=== PATIENT | male | born 1960 | race Caucasian/White ===

== ENCOUNTER 2019-03-09 09:27 | Emergency (ER) | payer MEDICARE, MEDICAID ==
--- NOTE | 2019-03-09 09:48 | Emergency Department Record ---
History of Present Illness - General Chief complaint: Male Urogenital Problem Stated complaint: TROUBLE URINATING Time Seen by Provider: 03/09/19 09:39 Source: Patient Mode of Arrival: Ambulatory Limitations: No limitations - History of Present Illness Initial comments: The patient is here due to a 3 day hx of dysuria. He denies any AP, nausea, vomiting, back pain or fevers. The patient has no hx of UTI's and he is on Coumadin due to chronic DVT's. MD Complaint: Dysuria Onset/Timin -: Days(s) - Related Data Home Medications Medication Instructions Recorded Confirmed Last Taken Cyclobenzaprine HCl [Flexeril] 10 mg PO BID 03/09/19 03/09/19 03/08/19 Gabapentin [Neurontin] 300 mg PO TID 03/09/19 03/09/19 03/09/19 Hydrocodone/Acetaminophen [[place] 1 each PO DAILY 03/09/19 03/09/19 03/08/19 7.5-325 Tablet] Warfarin Sodium [Coumadin] 5 mg PO Q48H 03/09/19 03/09/19 03/07/19 Warfarin Sodium [Coumadin] 7.5 mg PO Q48H 03/09/19 03/09/19 03/08/19 Previous Rx's Medication Instructions Recorded Cephalexin [Keflex] 500 mg PO TID #21 cap 03/09/19 Allergies Allergy/AdvReac Type Severity Reaction Status Date / Time antibiotics Allergy RASH Uncoded 03/09/19 09:42 Travel Screening - Travel/Exposure Within Last 30 Days Have you traveled within the last 30 days?: No - Travel/Exposure Within Last Year Have you traveled outside the [place] in the last year?: No - Additonal Travel Details Have you been exposed to anyone with a communicable illness?: No - Travel Symptoms Symptom Screening: None Review of Systems Constitutional: Denies: Chills, Fever Eyes: Denies: Eye discharge ENT: Denies: Congestion Respiratory: Denies: Cough, Dyspnea Past Medical History - SOCIAL HISTORY Smoking Status: Never smoker Alcohol Use: None Drug Use: None - RESPIRATORY Hx Respiratory Disorders: No - CARDIOVASCULAR Hx Cardio Disorders: Yes Hx Deep Vein Thrombosis: Yes - NEURO Hx Neuro Disorders: Yes Hx Neuropathy: Yes - GI Hx GI Disorders: No - Hx Genitourinary Disorders: Yes Hx Prostate Problems: Yes - ENDOCRINE Hx Endocrine Disorders: Yes Hx Diabetes: Yes (Type 1) - MUSCULOSKELETAL Hx Musculoskeletal Disorders: Yes Hx Arthritis: Yes - PSYCH Hx Psych Problems: No - HEMATOLOGY/ONCOLOGY Hx Hematology/Oncology Disorders: No Family Medical History Any Significant Family History?: No Physical Exam - General General Appearance: Alert, Oriented x3, Cooperative, No acute distress - Head Head exam: Atraumatic, Normocephalic, Normal inspection - Eye Eye exam: Normal appearance, PERRL - Neck Neck exam: Normal inspection, Full ROM. negative: Tenderness - Respiratory Respiratory exam: Normal lung sounds bilaterally. negative: Respiratory distress - Cardiovascular Cardiovascular Exam: Regular rate, Normal rhythm, Normal heart sounds - GI/Abdominal GI/Abdominal exam: Soft, Normal bowel sounds. negative: Rebound, Rigid, Tenderness - Back Back exam: Denies: CVA tenderness (R), CVA tenderness (L) - Neurological Neurological exam: Alert, Normal gait. negative: Abnormal gait - Skin Skin exam: negative: Rash Course Vital Signs 03/09/19 09:29 Pulse Rate 87 Respiratory 16 Rate Blood Pressure 132/89 Pulse Ox 100 - Reevaluation(s) Reevaluation #1: After urinating the patient had a post void residual of almost 1000 cc's. Due to that fact we will place a Garza Catheter. 03/09/19 10:03 Reevaluation #2: The patient is doing well after the catheter was placed. He denies any pain or discomfort. I did explain to him that the catheter needs to be removed in 2-3 days and he does have an appointment with his PCP on Monday in 2 days. He is to take an extra dose of Coumadin today due to his INR being 1.1 and is to continue the Keflex. The patient states he has a hx of multiple allergies to Abx 's but is able to take Keflex with Benadryl. 03/09/19 10:28 Medical Decision Making - Lab Data Result diagrams: 03/09/19 09:55 03/09/19 09:55 Disposition Disposition: Discharge Clinical Impression: UTI (urinary tract infection) Qualifiers: Urinary tract infection type: site unspecified Hematuria presence: without hematuria Qualified Code(s): N39.0 - Urinary tract infection, site not specified Disposition: Home, Self-Care Condition: (2) Stable Instructions: Urinary Tract Infection in Men (ED), Garza Catheter Placement and Care (ED) Additional Instructions: Please continue the Keflex and also take an extra dose of Coumadin today. Please see your doctor on Monday and have the catheter removed. Return to the ER for any abdominal pain, fever, or vomiting. Prescriptions: Cephalexin [Keflex] 500 mg PO TID #21 cap Forms: Patient Portal Access Time of Disposition: 10:31 Quality - Quality Measures Quality Measures: N/A - Blood Pressure Screening View Details: Yes Does Patient Have Any of the Following: No Blood Pressure Classification: Pre-Hypertensive BP Reading Systolic Measurement: 121 Diastolic Measurement: 89 Screening for High Blood Pressure: < Pre-Hypertensive BP, F/U Documented > [ [id number]] Pre-Hypertensive Follow-up Interventions: Referral to alternative/primary care provider.
[2019-03-09] MEDS ORDERED: LIDOCAINE UROJECT 10 ML APPL MM ONE (09:59)
[2019-03-09 10:00] LABS: BASO % 0.3 % (0-6); EOS % 0.9 % (0-6); GRAN % 78.2 % (47-80); HEMATOCRIT 41.3 % (42.0-52.0); HEMOGLOBIN 13.5 gm/dl (14.0-18.0); LYMPH % 10.3 % (16-45); MEAN CORPUSCULAR HGB CONC 32.7 g/dl (32-36); MONO % 10.3 % (0-9); PLATELET COUNT 267 K/uL (130-400); RED BLOOD COUNT 4.64 M/uL (4.40-5.70); RED CELL DISTRIBUTION WIDTH 13.2 % (11.5-14.5); WHITE BLOOD COUNT W/O DIFF 11.9 K/uL (4.2-12.2)
[2019-03-09 10:03] LABS: URINE APPEARANCE CLOUDY; URINE BILIRUBIN NEGATIVE (NEGATIVE); URINE BLOOD SMALL (NEGATIVE); URINE COLOR YELLOW; URINE GLUCOSE (UA) NEGATIVE (NEGATIVE); URINE KETONE NEGATIVE (NEGATIVE); URINE LEUKOCYTE ESTERASE LARGE (NEGATIVE); URINE NITRITE NEGATIVE (NEGATIVE)
[2019-03-09 10:08] LABS: URINE BACTERIA 4+; URINE EPITHELIAL CELLS 0 - 2 (FEW)
[2019-03-09 10:09] LABS: BLOOD UREA NITROGEN 9 mg/dL (6-20); CREATININE 0.8 mg/dL (0.7-1.2); EST GLOMERULAR FILTRATION RATE > 60 mL/min
[2019-03-09 10:12] LABS: GLUCOSE,RANDOM 108 mg/dL (74-109); INR 1.1; PROTHROMBIN TIME (PATIENT) 10.7 SECONDS (9.5-12.1)
[2019-03-09] MEDS ORDERED: CEPHALEXIN 500 MG CAPSULE PO STA (10:18)
== END 2019-03-09 10:50 | disposition home or self-care (01) ==
LOC: ER 09:27
DX: N39.0 Urinary tract infection, site not specified (principal); R30.0 Dysuria; E10.9 Type 1 diabetes mellitus without complications; I82.509 Chronic embolism and thrombosis of unspecified deep veins of unspecified lower extremity; Z79.01 Long term (current) use of anticoagulants
CPT/HCPCS: 80048; 81001; 85025; 85610; 99283